=== PATIENT | male | born 1995 | race Caucasian/White ===

== ENCOUNTER → 2016-10-16 | Outpatient (CLI) | payer OTHER ==
--- NOTE | 2016-10-17 14:30 | DIAGNOSTIC IMAGING REPORT ---
RIGHT WRIST 5 VIEWS HISTORY: RIGHT WRIST PAIN Right COMPARISON: None. FINDINGS: There is no fracture or dislocation. Soft tissues are unremarkable. No radiopaque foreign bodies. Comparison view of the left wrist is symmetric. The scapholunate interval remains intact. Incidental note is made of a small bone within the right scaphoid. IMPRESSION: No fractures. Electronically signed by: Gennaro Govea M.D. 10/17/2016 2:28 PM Dictated Date/Time: 10/17/2016 2:26 PM
== END | disposition home or self-care (01) ==
LOC: C.RDSM 11:16
PROVIDERS: ATTEND Family Medicine
DX: M25.531 Pain in right wrist (principal)

== ENCOUNTER → 2016-10-20 | Outpatient (CLI) | payer OTHER ==
--- NOTE | 2016-10-20 09:18 | DIAGNOSTIC IMAGING REPORT ---
MRI THE RIGHT WRIST NO CONTRAST CLINICAL HISTORY: Right wrist pain COMPARISON STUDY: No previous studies for comparison. FINDINGS: Imaging was performed in sagittal, coronal, and axial planes. There is a bone island within the navicular. The triangular fibrocartilage appears intact on this nonarthrographic study. No abnormal soft tissue masses are visualized. There is no evidence of tendinopathy. Position posterior to the base of the third metacarpal, and posterior to the distal aspect of the capitate, there is a 5 mm bony fragment which appears likely corticated. This is felt to be old and is consistent with either an accessory ossicle or old fracture fragment. There is evidence for T2 edema involving this bony fragment, likely stress-related basis. IMPRESSION: 1. 5 mm bony fragment demonstrating T2 edema located between the posterior base of the third metacarpal and posterior distal aspect of the capitate. This is consistent with either an old ununited fracture fragment or accessory ossicle. The T2 edema, likely indicates stress-related marrow edema. Electronically signed by: Jermaien Loaiza M.D. 10/20/2016 9:16 AM Dictated Date/Time: 10/20/2016 9:06 AM
== END | disposition home or self-care (01) ==
LOC: C.MRI 07:50
PROVIDERS: ATTEND Family Medicine
DX: M25.531 Pain in right wrist (principal)